=== PATIENT | female | born 1995 | race Caucasian/White ===

== ENCOUNTER → 2020-07-18 07:33 | Outpatient (CLI) | payer MEDICAID, SELFPAY ==
--- NOTE | ~2020-07-18 | US_ITS ---
EXAMINATION: US abdomen limited DATE: 07/18/2020 08:17 INDICATION: Epigastric abdominal tenderness. TECHNIQUE: Multiple grayscale and Doppler ultrasound images of the abdomen were obtained. COMPARISON: None FINDINGS: Abdominal aorta is normal in caliber. The visualized portions of the head of the pancreas a re normal. The liver is normal without focal lesion. No liver surface nodularity. There is normal daniella w in main portal vein. The gallbladder is normal in size and contains gallstones. No gallbladder wall thickening or sonographic Alfaro sign. The common duct is normal and measures 3 mm. IMPRESSION: 1. Cholelithiasis. No evidence of acute cholecystitis. Reviewed, dictated and finalized at location B.
== END ==
PROVIDERS: Visit Provider Surgery
DX: R10.816 Epigastric abdominal tenderness (principal); K80.20 Calculus of gallbladder without cholecystitis without obstruction
CPT/HCPCS: 76705

== ENCOUNTER → 2020-08-06 01:36 | Outpatient (CLI) | payer MEDICAID, SELFPAY ==
[2020-08-07 14:53] LABS: SARS-CoV-2 RNA PCR Negative
== END ==
PROVIDERS: Visit Provider Surgery
DX: Z01.812 Encounter for preprocedural laboratory examination (principal); Z20.822 Contact with and (suspected) exposure to COVID-19
CPT/HCPCS: C9803; U0003; U0005

== ENCOUNTER 2020-08-06 09:22 | Outpatient (CLI) | payer MEDICAID, SELFPAY ==
[2020-08-06 10:30] LABS: Alanine Aminotransferase 29 U/L (4-35); Albumin Level 3.8 g/dL (3.5-5.1); Alkaline Phosphatase 65 U/L (38-126); Amylase 59 U/L (30-110); Anion Gap 6 mmol/L (8-16); Aspartate Amino Transferase 31 U/L (14-36); Bilirubin,Total 0.4 mg/dL (0.2-1.3); Blood Urea Nitrogen 11 mg/dL (7-17); Carbon Dioxide 28 mmol/L (22-30); Chloride 105 mmol/L (98-107); Estimated Glomerular Filt Rate > 60; Glucose 119 mg/dL (65-105); Lipase 130 U/L (23-300); Potassium 3.8 mmol/L (3.4-5.0); Sodium 139 mmol/L (137-145)
== END 2020-08-06 09:23 | disposition home or self-care (01) ==
PROVIDERS: Visit Provider Surgery
DX: Z01.818 Encounter for other preprocedural examination (principal); R10.816 Epigastric abdominal tenderness; I10 Essential (primary) hypertension
CPT/HCPCS: 36415; 80048; 80076; 82150; 83690; 86850; 86900; 86901; U0003; U0005

== ENCOUNTER 2020-08-08 01:01 | Day surgery (SDC) | payer MEDICAID, SELFPAY ==
[2020-08-01 15:53] VITALS: BMI 39.6
[2020-08-08] VITALS (8 sets, daily range): BP systolic 116–151; BP diastolic 61–96; PULSE 54–77; RESP 12–20; TEMP 36.2–36.9; O2SAT 96–100
[2020-08-08] MEDS: LACTATED RINGERS 1,000 ML 30 ML IV CONT ×2 (10:30→13:00)
[2020-08-08] MEDS: KETOROLAC 15 MG/ML VIAL (*BKC) IV PUSH (10:35)
[2020-08-08] MEDS: ACETAMINOPHEN 500 MG TABLET 1000 MG PO (10:35)
--- NOTE | 2020-08-08 10:59 | WPDANESEPPF ---
Anes - Initial Pre Proc Eval Procedure: Operation Date: 08/08/20 12:00 Proposed Procedures p Laparoscopic Cholecystectomy, Possible Open - Loc Caraballo DO Date/Time: 08/08/20 10:59 Surgeon: Loc Caraballo DO Pre Op Diagnosis: symptomatic cholelithiasis Patient Data Age: 24 Gender: F Height: 1.7 m Weight: 117.1 kg Last Vital Signs Temp 36.9 C 08/08/20 10:24 Pulse 77 08/08/20 10:24 Resp 18 08/08/20 10:24 BP 151/96 H 08/08/20 10:24 Pulse Ox 100 08/08/20 10:24 Allergies Allergy/AdvReac Type Severity Reaction Status Date / Time No Known Allergies Allergy Unknown Verified 08/08/20 10:45 Home Medications Medication Instructions Recorded Confirmed Type acetazolamide 500 mg 500 mg PO BID 07/06/20 08/08/20 History capsule,extended release Patient hx anesthesia problems: none Family hx anesthesia problems: none [facility] Past Medical History Medical History Pseudotumor Surgical History Surgical History History of tonsillectomy and adenoidectomy Family History Family History Father No problems noted. Mother No problems noted. Sibling No problems noted. Other Heart disease Hypertension Diabetes mellitus Social History Social History Smoking status: Never smoker Alcohol intake: current Drinks per week: 4 Substance use: never Substance use type: does not use Living arrangements: with family Gender identity (if verbalized by the patient): Female Spiritual care concerns: No Anes - Eval Final PreProcedure Day of Procedure 08/08/20 10:59 Patient weight: morbidly obese Heart: regular rate and rhythm Lungs: clear to auscultation and normal air movement Airway: Mallampati scale class II Neurological: alert and oriented Last oral intake: >/= 8 hours ASA classification: III Emergent: no Anesthetic plan: proceed Anesthesia type and monitoring: general ETT and standard monitoring Informed Consent: The patient's anesthetic plan and its attendant risks and benefits were discussed with the patient/family/POA. Questions were solicited and answers provided to the satisfaction of the patient/family/POA.
--- NOTE | 2020-08-08 11:37 | WPDHPUPDATE1 ---
History and Physical Update Update Date/Time: 08/08/20 11:37 History and Physical has been reviewed, including an updated exam of the patient. There are NO changes in the patient's condition. Risks, benefits, and alternatives have been discussed and questions answered. Patient agrees to proceed with procedure.
--- NOTE | 2020-08-08 11:37 | PM.IMHP ---
H&P: HPI History of Present Illness Date/Time: 08/08/20 11:37 Chief Complaint: symptomatic cholelithiasis Narrative: 24 yo woman presents for lap fredo. She reports no changes since last seen in office. Her u/s showed evidence of cholelithiasis. Review of Systems Review of Systems: All systems reviewed & are unremarkable except as noted in HPI and below Constitutional: Constitutional: Denies chills, Denies fever(s), Denies headache(s) and Denies weight loss Eyes: Eyes: Denies change in vision ENT: Denies dizziness, Denies headache(s), Denies neck mass and Denies throat swelling Cardiovascular: Cardiovascular: Denies chest pain, Denies lightheadedness and Denies dyspnea Respiratory: Respiratory: Denies cough, Denies dyspnea and Denies wheezing Gastrointestinal: Gastrointestinal: Denies abdominal pain, Denies change in bowel habits, Denies nausea and Denies vomiting Genitourinary: Genitourinary: Denies hematuria and Denies dysuria Musculoskeletal: Musculoskeletal: Reports as per HPI Integumentary/Breasts: Skin/Breast: Reports as per HPI Neurologic: Denies dizziness and Denies headache(s) Allergic/Immunologic: Allergic/Immunologic: Denies throat swelling and Denies wheezing PMFSH Past Medical History Medical History Pseudotumor Surgical History Surgical History History of tonsillectomy and adenoidectomy Family History Family History Father No problems noted. Mother No problems noted. Sibling No problems noted. Other Heart disease Hypertension Diabetes mellitus Social History Social History Smoking status: Never smoker Alcohol intake: current Drinks per week: 4 Substance use: never Substance use type: does not use Living arrangements: with family Gender identity (if verbalized by the patient): Female Spiritual care concerns: No Meds Home Medications and Allergies Home Medications Medication Instructions Recorded Confirmed Type acetazolamide 500 mg 500 mg PO BID 07/06/20 08/08/20 History capsule,extended release Allergies Allergy/AdvReac Type Severity Reaction Status Date / Time No Known Allergies Allergy Unknown Verified 08/08/20 10:45 Vital Signs Vital Signs - 24 hr 08/08/20 10:24 Temperature 36.9 C Pulse Rate 77 Respiratory Rate 18 Blood Pressure 151/96 H Pulse Oximetry 100 Exam Const: General: no acute distress and alert Orientation/consciousness: patient oriented x3 HENMT: Head: normocephalic and atraumatic Ears: hearing grossly normal bilaterally General nose exam: Normal nares present Mouth: Yes Normal oral and palatal mucosa present Eyes: Periorbital: periorbital findings normal Sclera: sclerae normal EOM: EOMs intact bilaterally Neck: Neck: normal visual inspection, no lymphadenopathy and trachea midline Chest: Chest palpation & inspection: normal inspection of the chest Resp: Effort & Inspection: normal respiratory effort Auscultation: clear to auscultation bilaterally Cardio: Jugular venous distension: no JVD Rate: regular rate Rhythm: regular rhythm Heart sounds: S1 normal heart sound present and S2 normal heart sound present Peripheral pulses: Peripheral pulses 2+ throughout GI: Inspection: normal to inspection GI Palp: Yes Soft to palpation, No Tenderness to palpation present (GI), No Guarding due to palpation present (GI) and No Rebound tenderness present Percussion: Yes normal to percussion Auscultation: normal bowel sounds : General: Yes no CVA tenderness Back/Spine/Pelvis: Back: no CVA tenderness Neuro: General: patient oriented x3, no focal motor deficits and CN's II-XI intact bilaterally Cognition (Neuro): normal cognition Speech: normal speech Motor exam (neuro
[2020-08-08] MEDS: ceFAZolin 2 GM/D5W 50 ML 2 GM/50 ML BAG IVPB (12:05)
[2020-08-08] MEDS: BUPIVACAINE/EPINEPHRINE 0.5% 30 ML VIAL INFILTRATE (12:19)
--- NOTE | 2020-08-08 12:58 | PM.PROC ---
Procedure Note - Detailed Date of procedure: 08/08/20 Pre-op diagnosis: symptomatic cholelithiasis Post-op diagnosis: same Procedure performed: Laparoscopic Cholecystectomy Description of procedure: Procedure as well as risks, benefits, and alternatives were discussed with patient. Written consent was obtained and placed in chart prior to procedure. The patient was brought back to surgical suite. Patient was placed in supine position on operating table. Time-out was done to confirm patient and procedure. Patient was then intubated by the anesthesia department. Abdomen was prepped and draped in sterile fashion using chlorhexidine prep. 0.5% bupivacaine with epinephrine was infiltrated at each site of incision. A 5 millimeter incision was made near the umbilicus, and a 5 millimeter Optiview trocar was advanced through the abdominal layers under direct visualization. Once inside the abdominal cavity, carbon dioxide was insufflated to create a pneumoperitoneum. The camera was inserted and the abdomen was inspected. No immediate abnormalities were identified. The patient was placed in reverse Trendelenburg position and rotated slightly to the left. An 11 millimeter incision was made in the subxiphoid region, and an 11 millimeter trocar was inserted under direct visualization. Two 5 millimeter incisions were made in the right upper quadrant, and two 5 millimeter trocars were inserted under direct visualization. The gallbladder was identified and grasped at the fundus and retracted superiorly. It was then grasped at the infundibulum retracted laterally. Careful dissection around the neck of the gallbladder was performed using blunt dissection with a [place] grasper and hook electrocautery. The cystic duct was identified, and a window was created behind it. The cystic artery was also identified and a window was created behind it. The critical view of safety was identified, visualizing the cystic duct running directly into the neck of the gallbladder, and the cystic artery running directly into the wall of the gallbladder. A 5 millimeter clip finish machine tender was then used to place 2 clips proximally and 1 clip distally on both the cystic duct and cystic artery. They were then both transected using endoscopic scissors. Once safely away from the kiana hepatitis, the gallbladder was dissected free from the liver bed using hook electrocautery. Hemostasis was achieved along the way. The gallbladder was removed completely and then removed through the subxiphoid port. The liver bed was then inspected. Hemostasis appeared adequate, and our clips appeared secure. The area was gently irrigated with sterile saline. No other abnormalities were seen. The patient was flattened out in bed, and 1 final inspection was made around the abdominal cavity. The subxiphoid port was removed, and a Sanjay Collin cone was used to approximate the fascia with an 0-Vicryl simple interrupted suture. The remaining ports were then removed under direct visualization, the camera was removed, and the pneumoperitoneum was released. The skin of the incisions was approximated using 4-0 Monocryl subcuticular sutures. Exofin glue was applied on top. The patient was then awakened from anesthesia, extubated, and transferred to recovery. Anesthesia: GETA and local (0.5% bupivicaine with epi) Surgeon: Loc Caraballo DO Estimated blood loss (mL): 5 Drains: No Packing: No Pathology: yes Complications: No immediate complications Condition: stable (Patient tolerated procedure well, and is currently resting comfortably in recovery.) Disposition: same day Findings: This is a 24-year-old woman who presented with right upper quadrant abdominal pain for the past couple months. She had previously been to the emergency department and workup showed evidence of a contracted gallbladder and possible gallstones. She was able to be sent home from the emergency department and she was evaluated in the office. A
[2020-08-08] MEDS: fentaNYL CITRATE INJ (*CRX) 100 MCG/2 ML VIAL 25 MCG IV PUSH ×2 (13:21→13:24)
[2020-08-08] MEDS: oxyCODONE HCL (*CRX) 5 MG TAB IR PO (14:18)
== END 2020-08-08 14:55 | disposition home or self-care (01) ==
PROVIDERS: Visit Provider Surgery
PROC: 0FT44ZZ Resection of Gallbladder, Percutaneous Endoscopic Approach (ICD-10-PCS; CPT 47562; principal; 2020-08-08 12:00)
DX: K80.10 Calculus of gallbladder with chronic cholecystitis without obstruction (principal); E66.01 Morbid (severe) obesity due to excess calories; Z68.41 Body mass index [BMI] 40.0-44.9, adult
CPT/HCPCS: 47562; 88304; A9270; J0690; J1100; J1885; J2250; J2405; J2704; J2710; J3010; J7120

== ENCOUNTER 2021-02-04 09:14 | Outpatient (CLI) | payer MEDICAID, SELFPAY ==
[2021-02-04 10:23] LABS: Hemoglobin A1C 5.1 % (<5.7)
[2021-02-04 10:30] LABS: Alanine Aminotransferase 24 U/L (4-35); Albumin Level 4.6 g/dL (3.5-5.1); Alkaline Phosphatase 82 U/L (38-126); Anion Gap 8 mmol/L (8-16); Aspartate Amino Transferase 25 U/L (14-36); Bilirubin,Total 0.9 mg/dL (0.2-1.3); Blood Urea Nitrogen 11 mg/dL (7-17); Calcium 9.7 mg/dL (8.4-10.2); Carbon Dioxide 21 mmol/L (22-30); Chloride 109 mmol/L (98-107); Cholesterol 147 mg/dL (0-200); Estimated Glomerular Filt Rate 55; Glucose 104 mg/dL (65-110); HDL Direct 50 mg/dL; Potassium 4.3 mmol/L (3.4-5.0); Sodium 138 mmol/L (137-145); Triglycerides 84 mg/dL (<150)
[2021-02-04 10:40] LABS: LDL Cholesterol Direct 69 mg/dL
== END 2021-02-04 09:15 | disposition home or self-care (01) ==
LOC: ANHLAB 09:16
PROVIDERS: Visit Provider Family Medicine
DX: Z13.220 Encounter for screening for lipoid disorders (principal); E66.9 Obesity, unspecified; Z83.3 Family history of diabetes mellitus
CPT/HCPCS: 36415; 80053; 80061; 83036; 84443

== ENCOUNTER 2021-06-08 16:29 | Outpatient (CLI) | payer MEDICAID, SELFPAY ==
[2021-06-08 17:05] LABS: Hematocrit 39.2 % (37.0-47.0); Hemoglobin 13.3 g/dL (12.0-15.0); Mean Corpuscular HGB Conc 33.9 g/dl (32-36); Mean Corpuscular Hemoglobin 31.1 pg (26-34); Mean Corpuscular Volume 91.6 fl (80-100); Mean Platelet Volume 10.3 fl (7.4-10.4); Platelet Count Result 278 k/mm3 (150-375); Red Blood Count 4.28 M/mm3 (4.2-5.4); Red Cell Distribution Width 12.3 % (11.5-14.5); White Blood Count 10.3 K/mm3 (4.5-10.0)
[2021-06-08 17:42] LABS: Iron 77 ug/dL (37-170)
[2021-06-08 17:49] LABS: Alanine Aminotransferase 30 U/L (4-35); Albumin Level 4.6 g/dL (3.5-5.1); Alkaline Phosphatase 76 U/L (38-126); Anion Gap 8 mmol/L (8-16); Aspartate Amino Transferase 32 U/L (14-36); Bilirubin,Total 0.7 mg/dL (0.2-1.3); Blood Urea Nitrogen 16 mg/dL (7-17); Calcium 8.8 mg/dL (8.4-10.2); Carbon Dioxide 21 mmol/L (22-30); Chloride 107 mmol/L (98-107); Estimated Glomerular Filt Rate 46; Glucose 90 mg/dL (65-110); Sodium 136 mmol/L (137-145)
[2021-06-08 18:04] LABS: Free T4 Free Thyroxine 0.94 ng/mL (0.78-2.19); Vitamin D 25 Hydroxy 62.3 ng/mL
[2021-06-08 18:55] LABS: Folic Acid 6.7 ng/mL (2.76->20)
[2021-06-12 19:49] LABS: Triiodothyronine T3 Free 2.7 pg/mL (2.3-4.2)
== END 2021-06-08 16:30 | disposition home or self-care (01) ==
LOC: ANHLAB 16:33
PROVIDERS: PCP Family Medicine; Visit Provider Family Medicine
DX: R53.83 Other fatigue (principal)
CPT/HCPCS: 36415; 80053; 82306; 82607; 82746; 83540; 84439; 84443; 84481; 85027

== ENCOUNTER 2021-09-13 13:30 | Outpatient (CLI) | payer MEDICAID, SELFPAY ==
--- NOTE | ~2021-09-13 | XR_ITS ---
XR chest 2V DATE: 09/13/2021 13:55 INDICATION: Sleep apnea. Cerebral edema. Chronic kidney disease. TECHNIQUE: PA and lateral views COMPARISON: None FINDINGS: Normal heart size. No hilar or mediastinal enlargement. No pulmonary infiltrate or consolid ation, pleural effusion or pulmonary vascular congestion or pneumothorax. Status post cholecystectomy. IMPRESSION: No active cardiopulmonary disease Reviewed, dictated and finalized at location A.
--- NOTE | ~2021-09-13 | US_ITS ---
EXAMINATION: US renal BI DATE: 09/13/2021 14:26 INDICATION: CEREBRAL EDEMA AND CKD STAGE 3A TECHNIQUE: Multiple grayscale and Doppler ultrasound images of the kidneys were obtained. COMPARISON: 07/18/2020. FINDINGS: The right kidney measures 12 x 5.9 x 6.1 cm. The left kidney measures 10.6 x 5.7 x 7.3 cm. The kidney s demonstrate normal parenchymal echogenicity.No sonographic evidence of nephrolithiasis. No mass. No hydronephrosis. The bladder is well distended. Bladder wall thickness is normal IMPRESSION: 1. Normal renal sonogram findings. Reviewed, dictated and finalized at location K.
== END 2021-09-13 13:31 | disposition home or self-care (01) ==
PROVIDERS: PCP Family Medicine; Visit Provider Internal Medicine Nephrology
DX: N18.31 Chronic kidney disease, stage 3a (principal); G93.6 Cerebral edema; G47.39 Other sleep apnea; Z90.49 Acquired absence of other specified parts of digestive tract; Z68.42 Body mass index [BMI] 45.0-49.9, adult; E87.1 Hypo-osmolality and hyponatremia
CPT/HCPCS: 71046; 76775